=== PATIENT | male | born 1990 | race Caucasian/White ===

== ENCOUNTER 2017-04-03 12:59 | Emergency (ER) | payer BC, SELFPAY ==
[~2017-04-03] VITALS: Ht 190.5 cm; Wt 87.2 kg
[~2017-04-03 12:59] MED LIST: NO HISTORICAL MEDS
[2017-04-03 13:05] VITALS: BP 125/87
[2017-04-03] MEDS ORDERED: NAPR500T PO (13:56)
[2017-04-03] MEDS ORDERED: CLEO300C2 PO (13:56)
== END 2017-04-03 14:17 | disposition home or self-care (01) ==
LOC: M ED 12:59
DX: K04.7 Periapical abscess without sinus (principal); R68.84 Jaw pain; F17.200 Nicotine dependence, unspecified, uncomplicated